=== PATIENT | female | born 1975 | race Caucasian/White ===

== ENCOUNTER 2018-08-18 19:23 | Emergency (ER) | payer BC ==
[~2018-08-18] VITALS: Ht 154.9 cm; Wt 61.2 kg
[2018-08-18 19:33] VITALS: BP_SYST 197
[2018-08-18] MEDS ORDERED: cloNIDine HCL 0.1 MG TABLET PO ONE ×2 (20:45→21:30)
[2018-08-18 22:50] VITALS: BP_SYST 182
== END 2018-08-18 22:50 | disposition home or self-care (01) ==
LOC: SED 19:23
DX: H10.9 Unspecified conjunctivitis (principal); I10 Essential (primary) hypertension
CPT/HCPCS: 99283